=== PATIENT | male | born 1980 ===

== ENCOUNTER 2017-01-26 13:45 | Emergency (ER) | payer OTHER ==
[2017-01-26 13:53] VITALS: TEMP 98.2
[2017-01-26] MEDS ORDERED: Naproxen 550 mg Tab PO STA (14:08)
[2017-01-26] MEDS ORDERED: Naproxen 550 mg Tab PO ONE (14:13)
[2017-01-26 14:28] LABS: RBC URINE 2 /hpf (0-3); URINE BILIRUBIN NEGATIVE (NEGATIVE); URINE BLOOD NEGATIVE (NEGATIVE); URINE COLOR Yellow (YELLOW); URINE GLUCOSE (UA) NORMAL (Normal); URINE KETONE NEGATIVE (NEGATIVE); URINE LEUKOCYTE ESTERASE NEG Leu/uL (Negative); URINE PROTEIN NEGATIVE (NEGATIVE); URINE UROBILINOGEN NORMAL mg/dL (0.2-1.0); WBC URINE 2 /hpf (0-5)
--- NOTE | 2017-01-26 14:39 | C.PDOC ---
History Of Present Illness 36 yo mlae, presents with left lower back pain. pt states pain started 2 days ago, to left lower side and also saw rash to the area. no fevers, urinary changes, trauma. pt denies heavy lfiting. Time Seen by Provider: 01/26/17 13:54 Chief Complaint (Nursing): Back Pain Past Medical History Reviewed: Historical Data, Nursing Documentation, Vital Signs Vital Signs: Last Vital Signs Temp 98.2 F 01/26/17 13:49 Pulse 72 01/26/17 14:44 Resp 18 01/26/17 14:44 BP 110/70 01/26/17 14:44 Pulse Ox 96 01/26/17 14:44 Family History: States: Unknown Family Hx - Social History Hx Alcohol Use: Yes Hx Substance Use: No - Immunization History Hx Tetanus Toxoid Vaccination: No (not sure of last tetanus) Hx Influenza Vaccination: No Hx Pneumococcal Vaccination: No Review Of Systems Except As Marked, All Systems Reviewed And Found Negative. Musculoskeletal: Positive for: Back Pain Skin: Positive for: Rash Physical Exam - Physical Exam Appears: Well, No Acute Distress Skin: Normal Color, Warm, Dry Eye(s): bilateral: Normal Inspection, PERRL, EOMI Nose: Normal Throat: Normal Neck: Normal Cardiovascular: Rhythm Regular Respiratory: Normal Breath Sounds Gastrointestinal/Abdominal: Normal Exam Back: Normal Inspection, No Vertebral Tenderness, Paraspinal Tenderness, No Straight Leg Raising, Other ((+)mild 2-3 cm area of maculopapular rash, midly vesicular appearing) Extremity: Normal ROM ED Course And Treatment O2 Sat by Pulse Oximetry: 96 Medical Decision Making Medical Decision Making: back pain/rash- possible early shingles - pt declines any treatment of rash, antiviral. states "he knows this is not causing pain". pt requests urine to be checked. ua resulted neg. pt states he will follow up outpt with his pmd. Disposition - Disposition Referrals: [facility] [Outside] [facility] [Outside] [facility] [Outside] Disposition: HOME/ ROUTINE Disposition Time: 03:00 Condition: STABLE Additional Instructions: please follow up with your doctor. return to er with worsening symptoms or concerns. Prescriptions: Naproxen [EC-Naprosyn] 500 mg PO BID PRN #14 tablet.dr MCCLELLAN Reason: Pain, Mild (1-3) Instructions: Acute Rash (ED), Acute Low Back Pain (ED) Forms: [facility] (Lao) - Clinical Impression Clinical Impression: Low back pain, Rash
[2017-01-26 14:44] VITALS: BP 110/70; PULSE 72; RESP 18
[2017-01-26 14:45] VITALS: O2SAT 96
== END 2017-01-26 14:58 | disposition home or self-care (01) ==
LOC: C.ER 13:45
DX: M54.5 Low back pain (principal); R21 Rash and other nonspecific skin eruption

== ENCOUNTER 2017-02-04 18:12 | Emergency (ER) | payer OTHER ==
[2017-02-04 18:25] VITALS: RESP 16; TEMP 98.5
--- NOTE | 2017-02-04 19:40 | C.PDOC ---
History Of Present Illness Patient presents to the ER with a complaint of rectal pain and bright red blood while wiping worsening over the past 2 days. Denies foreign body insertion, fever, chills, nausea, or vomiting. Time Seen by Provider: 02/04/17 19:40 Chief Complaint (Nursing): GI Problem History Per: Patient History/Exam Limitations: no limitations Onset/Duration Of Symptoms: Days Current Symptoms Are (Timing): Still Present Number Of Bleeding Episodes: Multiple: Amount of Blood Loss: Small Severity: Mild Pain Scale Rating Of: 4 Associated Symptoms: Rectal Bleeding. denies: Nausea, Vomiting Modifying Factors: None Recent travel outside of the [place]: No Past Medical History Reviewed: Historical Data, Nursing Documentation, Vital Signs Vital Signs: Last Vital Signs Temp 98.5 F 02/04/17 18:21 Pulse 92 H 02/04/17 19:51 Resp 16 02/04/17 19:51 BP 132/83 02/04/17 19:51 Pulse Ox 96 02/04/17 20:03 - Medical History PMH: No Chronic Diseases Surgical History: No Surg Hx Family History: States: No Known Family Hx - Social History Hx Alcohol Use: Yes Hx Substance Use: No - Immunization History Hx Tetanus Toxoid Vaccination: No (not sure of last tetanus) Hx Influenza Vaccination: No Hx Pneumococcal Vaccination: No Review Of Systems Constitutional: Negative for: Fever, Chills Gastrointestinal: Positive for: Rectal Pain (w/ blood on wiping). Negative for : Nausea, Vomiting Physical Exam - Physical Exam Appears: Non-toxic, No Acute Distress Skin: Warm, Dry Head: Normacephalic Oral Mucosa: Moist Chest: Symmetrical Cardiovascular: Rhythm Regular Respiratory: No Rales, No Rhonchi, No Wheezing Gastrointestinal/Abdominal: Bowel Sounds (Active), Soft, No Tenderness Rectal: Hemorrhoids (Large, external, nonthrombosed, mildly tender to palpation) Neurological/Psych: Oriented x3, Other (No focal deficits) ED Course And Treatment O2 Sat by Pulse Oximetry: 96 (Room air) Pulse Ox Interpretation: Normal Reevaluation Time: 20:18 Reassessment Condition: Improved Disposition Counseled Patient/Family Regarding: Studies Performed, Diagnosis, Need For Followup, Rx Given - Disposition Referrals: Shaik Velez MD [Staff Provider] - Disposition: HOME/ ROUTINE Disposition Time: 19:40 Condition: FAIR Prescriptions: Hydrocortisone 2.5% (Rectal) [Anusol-HC] 30 applic AL BID #1 tube Polyethylene Glycol 3350 [Miralax] 17 gm PO DAILY #270 ml Instructions: Hemorrhoids (ED) Forms: [facility] (Greek) - Clinical Impression Clinical Impression: Hemorrhoids - Scribe Statement The provider has reviewed the documentation as recorded by the Scribe Gerry Rivas All medical record entries made by the Scribe were at my direction and personally dictated by me. I have reviewed the chart and agree that the record accurately reflects my personal performance of the history, physical exam, medical decision making, and the department course for this patient. I have also personally directed, reviewed, and agree with the discharge instructions and disposition.
[2017-02-04 19:51] VITALS: BP 132/83; PULSE 92
[2017-02-04 19:57] VITALS: O2SAT 96
== END 2017-02-04 20:32 | disposition home or self-care (01) ==
LOC: C.ER 18:12
DX: K64.4 Residual hemorrhoidal skin tags (principal)

== ENCOUNTER 2018-05-03 03:45 | Emergency (ER) | payer OTHER ==
[2018-05-03 03:51] VITALS: O2SAT 97
--- NOTE | 2018-05-03 04:14 | C.PDOC ---
History Of Present Illness 37 year old male is brought to the ED by EMS for alcohol intoxication. Patient was found sleeping on the street and brought to the ED for evaluation. Patient admits to drinking today. Patient denies SI/HI, hallucinations, injury, fall, trauma. Time Seen by Provider: 05/03/18 04:13 Chief Complaint (Nursing): Substance Abuse History Per: Patient, EMS History/Exam Limitations: intoxication Onset/Duration Of Symptoms: Hrs Current Symptoms Are (Timing): Still Present Suicide/Self Injury Attempted (Context): None Modifying Factor(s): Alcohol Associated Symptoms: denies: Depression, Suicidal Thoughts, Suicidal Plan Recent travel outside of the [place]: No Additional History Per: Patient Past Medical History Reviewed: Historical Data, Nursing Documentation, Vital Signs Vital Signs: Last Vital Signs Temp 97 F L 05/03/18 03:48 Pulse 84 05/03/18 03:48 Resp 14 05/03/18 03:48 BP 130/80 05/03/18 03:48 Pulse Ox 97 05/03/18 03:48 - Medical History PMH: No Chronic Diseases Surgical History: No Surg Hx Family History: States: Unknown Family Hx - Social History Hx Alcohol Use: Yes Hx Substance Use: No - Immunization History Hx Tetanus Toxoid Vaccination: No (not sure of last tetanus) Hx Influenza Vaccination: No Hx Pneumococcal Vaccination: No Review Of Systems Constitutional: Negative for: Fever, Chills Cardiovascular: Negative for: Chest Pain Respiratory: Negative for: Shortness of Breath Gastrointestinal: Negative for: Nausea, Vomiting, Abdominal Pain Neurological: Negative for: Weakness, Numbness Psych: Negative for: Depression, Suicidal ideation Physical Exam - Physical Exam Appears: Non-toxic, No Acute Distress Skin: Warm, Dry Head: Normacephalic Eye(s): bilateral: Normal Inspection Neck: Supple Chest: Symmetrical Cardiovascular: Rhythm Regular Respiratory: No Rales, No Rhonchi, No Wheezing Gastrointestinal/Abdominal: Soft, No Tenderness, No Guarding, No Rebound Extremity: Bilateral: Atraumatic, Normal Color And Temperature, Normal ROM Neurological/Psych: Oriented x3, Normal Speech, Normal Cognition Gait: Steady ED Course And Treatment O2 Sat by Pulse Oximetry: 97 (ON RA) Pulse Ox Interpretation: Normal Reevaluation Time: 05:37 Reassessment Condition: Improved Disposition Counseled Patient/Family Regarding: Studies Performed, Diagnosis, Need For Followup - Disposition Referrals: [facility] [Outside] Disposition: HOME/ ROUTINE Disposition Time: 04:14 Condition: FAIR Instructions: Alcohol Abuse and Alcoholism (DC) Forms: [facility] (Jordanian) - Clinical Impression Clinical Impression: Alcohol intoxication - Scribe Statement The provider has reviewed the documentation as recorded by the Scribe Justin Anderson All medical record entries made by the Scribe were at my direction and personally dictated by me. I have reviewed the chart and agree that the record accurately reflects my personal performance of the history, physical exam, medical decision making, and the department course for this patient. I have also personally directed, reviewed, and agree with the discharge instructions and disposition.
[2018-05-03 06:00] VITALS: BP 134/82; PULSE 86; RESP 16; TEMP 98
== END 2018-05-03 06:00 | disposition home or self-care (01) ==
LOC: C.ER 03:45
DX: F10.129 Alcohol abuse with intoxication, unspecified (principal)